=== PATIENT | female | born 1985 | race Hispanic/Latino ===

== ENCOUNTER 2020-04-21 10:04 | Outpatient (CLI) | payer BC, SELFPAY ==
--- NOTE | ~2020-04-21 | XR_ITS ---
XR shoulder RT min 2V 04/21/2020 10:28 INDICATION: Right shoulder pain PROCEDURE: 4 views right shoulder COMPARISON: No prior studies for comparison. FINDINGS: Fracture, dislocation or subluxation is not identified. The soft tissues appear within norm al limits. No foreign bodies are identified. IMPRESSION: 1: NO ACUTE BONE OR JOINT ABNORMALITY IDENTIFIED. Reviewed, dictated and finalized at location A.
--- NOTE | ~2020-04-21 | XR_ITS ---
EXAMINATION: XR_[id number]_CR DATE: 04/21/2020 10:28 INDICATION: Neck pain. TECHNIQUE: 3 views of cervical spine were obtained. COMPARISON: None. FINDINGS: There is mild kyphosis of cervical spine. There is 8 degrees levocurvature of cervicothorac ic spine. Vertebral body heights and intervertebral disc heights are normal. The uncovertebral joints and facet joints are normal. IMPRESSION: 1. Cervical kyphosis and cervicothoracic levocurvature. Reviewed, dictated and finalized at location A.
== END 2020-04-21 10:05 | disposition home or self-care (01) ==
PROVIDERS: PCP Family Medicine; Visit Provider Family Medicine
DX: M25.519 Pain in unspecified shoulder (principal); M54.2 Cervicalgia
CPT/HCPCS: 72040; 73030

== ENCOUNTER 2021-10-06 10:55 | Outpatient (CLI) | payer BC, SELFPAY ==
--- NOTE | ~2021-10-06 | XR_ITS ---
XR knee RT min 4V 10/06/2021 11:23 INDICATION: Right knee pain PROCEDURE: 4 views of the right knee COMPARISON: No prior studies for comparison. FINDINGS: Fracture, dislocation or subluxation is not identified. No significant joint effusion. The soft tissues appear within normal limits. No foreign bodies are identified. IMPRESSION: 1: NO ACUTE BONE OR JOINT ABNORMALITY IDENTIFIED. Reviewed, dictated and finalized at location A. 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
== END 2021-10-06 10:56 | disposition home or self-care (01) ==
PROVIDERS: PCP Family Medicine; Visit Provider Physician Assistant
DX: M25.561 Pain in right knee (principal)
CPT/HCPCS: 73564

== ENCOUNTER 2024-10-15 15:41 | Emergency (ER) | payer OTHER, SELFPAY ==
--- NOTE | 2024-10-15 15:47 | ED_ITS ---
HPI - URI/Sore Throat General Chief Complaint: Upper Respiratory Infection Stated Complaint: COUGH Time Seen by Provider: 10/15/24 15:55 Source: patient Mode of arrival: ambulatory Limitations: no limitations History of Present Illness HPI Narrative: Patient is a 3-year-old female presents with 2 weeks of cough. Patient states she had a fever in the beginning but all other symptoms have resolved. Reports she frequently has coughing fits. Patient is use Delsym and Robitussin along with cough drops. Related Data Home Medications Medication Instructions Recorded Confirmed calcium 600 mg (as cap PO 10/06/21 03/26/24 carbonate)-vitamin D3 10 mcg (400 unit) capsule Allergies Allergy/AdvReac Type Severity Reaction Status Date / Time Sulfa (Sulfonamide Allergy Unknown Rash Verified 10/15/24 15:57 Antibiotics) Review of Systems Review of Systems: All systems reviewed & are unremarkable except as noted in HPI and below Constitutional: Constitutional: Denies body ache(s), Denies chills, Denies fatigue, Denies fever(s), Denies headache(s), Denies malaise and Denies weakness Eyes: Eyes: Denies blurry vision, Denies itchy eyes and Denies loss of vision ENT: Denies otalgia, Denies headache(s), Denies nasal congestion, Denies sinus pain and Denies sore throat Cardiovascular: Cardiovascular: Denies chest pain, Denies irregular heart rhythm and Denies dyspnea Respiratory: Respiratory: Reports cough and Denies dyspnea Gastrointestinal: Gastrointestinal: Denies abdominal pain, Denies diarrhea, Denies nausea and Denies vomiting Musculoskeletal: Musculoskeletal: Denies back pain, Denies myalgias and Denies arthralgias Integumentary/Breasts: Skin/Breast: Denies pruritus and Denies rash Neurologic: Denies headache(s), Denies loss of vision and Denies weakness Psychiatric: Psychiatric: Reports no additional psychiatric complaints Endocrine: Endocrine: Denies fatigue Allergic/Immunologic: Allergic/Immunologic: Denies itchy eyes PMFSH Past Medical History Medical History Hypothyroidism Family History Family History Father Family history of hypercholesterolemia Hypertension Grandparent Family history of cardiovascular disease Social History Social History Smoking status: Never smoker Second hand tobacco smoke exposure: No Alcohol intake: never Substance use: never Substance use type: does not use Comments At time of signature, agree with nursing past medical, surgical, social and family history. There is no relevant family history pertinent to the presenting complaint. Exam Const: General: cooperative, healthy appearing, comfortable, no acute distress and well nourished Nutritional Appearance: well nourished Orientation/consciousness: patient oriented x3 Limitations: no limitations HENMT: Head: normal to inspection, normocephalic and atraumatic Ears: hearing grossly normal bilaterally, external ears normal, TM's normal bilaterally, EAC's normal and no periauricular adenopathy Face/Nose/Sinus: Normal external nose present, Normal nasal mucous membranes and turbinates present, normal facial exam, sinuses nontender and face symmetric Face and sinus: normal facial exam, sinuses nontender and face symmetric Mouth: Yes Normal oral and palatal mucosa present, Yes lip normal, Yes tongue normal, Yes Normal salivary glands and ducts present, Yes oropharynx normal and Yes moist mucous membranes Teeth and gingiva: dentition normal Throat: posterior oropharynx normal, tonsils normal and uvula midline Eyes: General: appearance normal, both eyes and all related structures Alignment and Position: alignment normal and position normal Periorbital: periorbital findings normal Eyelids: eyelids normal Pupils: Equal, round and reactive pupils present Neck: Neck: normal visual inspection, full ROM, no lymphadenopathy and supple Chest: Chest palpation & inspection: normal inspection of the chest and normal palpation of entire chest wall Resp: Effort & Inspection: normal respiratory effort, able to speak in complete sentences and Actively coughing actively coughing Auscultation: clear to auscultation bilaterally, no crackles, no rales, no rhonchi and no wheezes Cardio: Rate: regular rate Rhythm: regular rhythm Heart sounds: S1 normal heart sound present and S2 normal heart sound present GI: Inspection: normal to inspection Skin: General skin exam: normal color and no rashes or lesions noted Neuro: General: patient oriented x3 and moves all extremities Cranial nerves: Yes Equal, round and reactive pupils present Speech: normal speech Gait exam (Neuro): Normal gait present Extrem: General: normal to inspection, full ROM and no edema Psych: Appearance: grossly normal and well kempt Mental Status: mental status grossly normal Speech and movement: Normal speech and movement present Affect: normal affect Attitude: cooperative Thought process: Normal thought process present Course Course Emergency Course: Patient is aware of diagnosis, understands and agrees to treatment plan. Anticipatory guidance given. Patient agrees to follow-up as directed and is aware of reasons to seek care at the emergency department. Portions of this record may have been created with voice recognition software Level of Care: Express Care Visit Vital Signs Vital signs: Reviewed MDM - URI/Sore Throat MDM Narrative Medical decision making narrative: Discharge instructions reviewed with patient, as well as provided in writing per nursing staff. The instructions also include specific and strict return/GO TO THE ER as well as f/u information. All questions have been answered, and the patient deny any further questions with discharge and discharge plan. Differential diagnosis considered: Ambrosio virus, strep pharyngitis, allergic rhinitis, upper respiratory tract infection, sinusitis, rhinosinusitis, nasopharyngitis. viral pharyngitis, otitis media, otitis externa, otitis effusion, foreign body, cerumen impaction, viral syndrome, and influenza.? Exam findings show no acute concerns or changes; patient is non-toxic appearing and is in no distress.? Patient is appropriate for outpatient treatment and follow- up.? Medical Records Attestation: I reviewed the patient's medical records. Discharge Plan Discharge Clinical Impression: Acute purulent bronchitis Patient Disposition: Home, Self-Care Condition: Stable Instructions: Acute Bronchitis (ED) Additional Instructions: Take antibiotic as prescribed. Take steroids in the morning with food. Use Tessalon Perles as needed for cough. Use inhaler with spacer as needed. Other symptomatic treatments include: -Alternate Tylenol and Motrin per package directions for fever or pain. -Antihistamine medication such as Benadryl at night and Zyrtec/Claritin/Linda during the day can help improve symptoms. -Use Flonase twice a day for 5 days then daily to help reduce the inflammation and dry up your sinuses. -You can also use Sudafed or Mucinex. Be sure to drink plenty of water with these medications at least 8 ounces with every dose and it is important to drink 8 to 10 glasses of water per day. Water is a natural decongestant -Eat and drink things that are easy to swallow, like tea or soup, or popsicles. -Oral rinses such as: Salt water gargles and/or may use topical anesthetic (eg. Chloraseptic spray) or lozenges to relieve dryness or throat pain). -Frequent hand washing or hand [employer] home [employer] utility worker is one of the best ways to prevent spread of infection. -Using a vaporizer or humidifier at night will also help thin secretions and help with coughing up phlegm. -Follow up with primary care provider in 3-5 days if condition is not improving - For new or worsening symptoms go directly to the nearest ER Prescriptions: New azithromycin 250 mg tablet See Rx Instructions .ROUTE .COMPLEX Qty: 6 0RF Rx Instructions: For 250 mg dose pack: take 500 mg today (day 1), then 250 mg for 4 days (days 2-5) prednisone 20 mg tablet 40 mg PO DAILY 5 Days Qty: 10 0RF benzonatate 100 mg capsule 100 mg PO BID PRN (Reason: cough) Qty: 14 0RF albuterol sulfate 90 mcg/actuation HFA aerosol inhaler 2 puff inhalation QID PRN (Reason: shortness of breath or wheezing) Qty: 6.7 0RF (DME) Aerochamber MV Spacer See Rx Instructions .Route Qty: 1 0RF Rx Instructions: As directed No Action buspirone 5 mg tablet 5 mg PO TID Qty: 90 0RF calcium carbonate-vitamin D3 600 mg(1,500mg) -400 unit capsule PO omeprazole 20 mg capsule,delayed release(DR/EC) 20 mg PO BID Qty: 60 0RF levothyroxine 75 mcg tablet 75 mcg PO DAILY Qty: 30 3RF multivitamin Tablet 1 tablet PO DAILY Qty: 100 3RF Follow-up/Referrals: Rosalinda Orozco MD [Primary Care Provider] - 3 Days Time of Disposition: 16:05
[2024-10-15 15:49] VITALS: BP 120/88; PULSE 74; RESP 16; TEMP 36.3; O2SAT 100
== END 2024-10-15 16:08 | disposition home or self-care (01) ==
PROVIDERS: Emergency Provider Nurse Practitioner Family; PCP Family Medicine
DX: J20.9 Acute bronchitis, unspecified (principal); E03.9 Hypothyroidism, unspecified
CPT/HCPCS: 99213; G0463

== ENCOUNTER 2025-01-08 19:26 | Emergency (ER) | payer OTHER, SELFPAY ==
--- NOTE | 2025-01-08 19:30 | ED.WOUNDLAC ---
HPI - Wound/Laceration General Chief Complaint: Wound/Laceration Stated Complaint: HEAD INJURY/SCALP LACERATION Time Seen by Provider: 01/08/25 19:30 Source: patient Mode of arrival: ambulatory Limitations: no limitations History of Present Illness HPI narrative: 39-year-old female presents with complaint of laceration to top of scalp. Patient states she hit her head on a shelf at [employer]. Injury happened approximately 2 hours prior to arrival. Continues to have small amount of bleeding. No LOC. Denies dizziness, headache, nausea, vomiting. Ambulatory with steady gait. All systems reviewed and negative except as noted above. Related Data Home Medications ?Medication ?Instructions ?Recorded ?Confirmed ?Last Taken ?Type calcium 600 mg (as cap PO 10/06/21 03/26/24 Unknown History carbonate)-vitamin D3 10 mcg (400 unit) capsule Allergies Allergy/AdvReac Type Severity Reaction Status Date / Time Sulfa (Sulfonamide Allergy Unknown Rash Verified 01/08/25 19:36 Antibiotics) Review of Systems Review of Systems: CONSTITUTIONAL: Denies fever, chills, or sweats. EYES: Denies visual changes, redness, or discharge. ENT: Denies rhinorrhea, congestion, sore throat, or otalgia. CARDIOVASCULAR: Denies chest pain, palpitations, or edema. RESPIRATORY: Denies cough or dyspnea. GASTROINTESTINAL: Denies abdominal pain, nausea, vomiting, or diarrhea. GENITOURINARY: Denies dysuria or hematuria. SKIN: Denies rash or itching. Reports laceration to scalp MUSCULOSKELETAL: Denies back pain, joint pain, or myalgia. NEUROLOGIC: Denies headache, numbness, or weakness. PSYCHIATRIC: Denies anxiety or depression. All other systems reviewed are negative, except as documented in HPI. [facility] Past Medical History Medical History (Updated 01/09/25 @ 00:01 by Malu Calvillo) Hypothyroidism Family History Family History Father Family history of hypercholesterolemia Hypertension Grandparent Family history of cardiovascular disease Social History Social History Smoking status: Never smoker Second hand tobacco smoke exposure: No Alcohol intake: never Substance use: never Substance use type: does not use Comments At time of signature, agree with nursing past medical, surgical, social and family history. There is no relevant family history pertinent to the presenting complaint. Exam Narrative: GENERAL: This is a well-nourished, well-developed patient, in no apparent distress. HEAD: normocephalic, atraumatic. EYES: PERRL. Sclera clear/white. Vision is grossly intact. EARS: External ears normal NOSE: External nose normal NECK: Neck supple, non-tender without lymphadenopathy, masses or thyromegaly. CARDIOVASCULAR: Regular rate and rhythm without murmurs, gallops, or rubs. RESPIRATORY: Clear to auscultation. Breath sounds equal bilaterally. No wheezes, rales, or rhonchi. SKIN: warm, Dry, with no suspicious lesions or rash, good texture and turgor. laceration to scalp approx. 0.5cm, small amount of bleeding. NEURO: awake, alert, and oriented to person, place and time. There were no obvious focal neurologic abnormalities. EXTREMITIES: No joint tenderness, effusion, or edema noted. Course Course Level of Care: Express Care Visit Vital Signs Vital signs: Vital Signs Temperature 37.1 C 01/08/25 19:45 Pulse Rate 74 01/08/25 19:45 Respiratory Rate 16 01/08/25 19:45 Blood Pressure 123/76 01/08/25 19:45 Pulse Oximetry 100 01/08/25 19:45 Temperature 36.6 C 01/08/25 19:53 Pulse Rate 101 H 01/08/25 19:53 Respiratory Rate 16 01/08/25 19:53 Blood Pressure 121/87 01/08/25 19:53 Pulse Oximetry 100 01/08/25 19:53 Reviewed Procedures Laceration Laceration 1: Date: 01/08/25 Site: scalp Size (cm): 0.5 Description: linear ====== Skin Level ====== Skin layer closed with: amanda Number of sutures: 2 ====== Subcutaneous Layer ====== ====== Muscle Layer ====== ====== Tendon Layer ====== MDM - Wound/Laceration MDM Narrative Medical decision making narrative: 2 amanda placed 2 scalp laceration. Patient tolerated well. Patient alert, nontoxic. No neuro deficits. Please be advised this is a medical document. It is intended for [id number] communication. It is written in medical language and may contain unfamiliar abbreviations or verbiage. Medical documents are intended to carry relevant information, facts as evident, and the clinical opinion of the practitioner at the time of the encounter. This report may have been done utilizing a voice recognition system. Attempts have been made to correct errors. However, there may be uncorrected grammatical, spelling, and recognition errors present. The file time of this note does not necessarily represent the time of service. Discharge Plan Discharge Clinical Impression: Laceration of scalp Patient Disposition: Home, Self-Care Condition: Stable Instructions: Laceration (ED), Staple Care (ED) Additional Instructions: 2 amanda were placed to laceration on your scalp. Follow-up to have amanda removed in 5-7 days. Keep clean and dry. May apply Vaseline or Aquaphor to reduce scarring. Do not pull or pick or scrub at amanda when washing hair. Patient Language: Slovak Prescriptions: No Action azithromycin 250 mg tablet See Rx Instructions .ROUTE .COMPLEX Qty: 6 0RF Rx Instructions: For 250 mg dose pack: take 500 mg today (day 1), then 250 mg for 4 days (days 2-5) prednisone 20 mg tablet 40 mg PO DAILY 5 Days Qty: 10 0RF benzonatate 100 mg capsule 100 mg PO BID PRN (Reason: cough) Qty: 14 0RF albuterol sulfate 90 mcg/actuation HFA aerosol inhaler 2 puff inhalation QID PRN (Reason: shortness of breath or wheezing) Qty: 6.7 0RF (DME) Aerochamber MV Spacer See Rx Instructions .Route Qty: 1 0RF Rx Instructions: As directed buspirone 5 mg tablet 5 mg PO TID Qty: 90 0RF calcium carbonate-vitamin D3 600 mg(1,500mg) -400 unit capsule PO omeprazole 20 mg capsule,delayed release(DR/EC) 20 mg PO BID Qty: 60 0RF multivitamin Tablet 1 tablet PO DAILY Qty: 100 3RF levothyroxine 75 mcg tablet 75 mcg PO DAILY Qty: 30 3RF Follow-up/Referrals: Rosalinda Orozco MD [Primary Care Provider] - Stand Alone Forms: Work/School Release IP Time of Disposition: 19:43
[2025-01-08 19:45] VITALS: BP 123/76; PULSE 74; RESP 16; TEMP 37.1; O2SAT 100
--- NOTE | 2025-01-08 19:49 | PC.NURSE ---
0 Patient awake and alert, pupils equal and reactive to light; handgrips strong push and pull, feet strong push, able to touch nose with outstretched arms; tongue midline. No loc reported.
[2025-01-08 19:53] VITALS: BP 121/87; PULSE 101; RESP 16; TEMP 36.6; O2SAT 100
== END 2025-01-08 19:54 | disposition home or self-care (01) ==
PROVIDERS: Emergency Provider Nurse Practitioner Family; PCP Family Medicine
DX: S01.01XA Laceration without foreign body of scalp, initial encounter (principal); W22.8XXA Striking against or struck by other objects, initial encounter; E03.9 Hypothyroidism, unspecified
CPT/HCPCS: 12001; 99212; G0463

== ENCOUNTER 2025-01-16 16:13 | Emergency (ER) | payer SELFPAY ==
[2025-01-16 16:28] VITALS: BP 115/79; PULSE 72; RESP 16; TEMP 36.2; O2SAT 100
--- NOTE | 2025-01-16 17:44 | ED.GENADULT ---
HPI - General Adult General Chief complaint: Skin/Abscess/Foreign Body Stated complaint: [place] Removal Source: patient Mode of arrival: ambulatory Limitations: no limitations History of Present Illness HPI narrative: Patient presents to have amanda removed from her scalp. She was evaluated here on 01/08/25 after she had her head on a shelf at [employer]. She had 2 amanda placed. She tolerated well. She denies any fever, chills, purulence from the affected area. She has no physical concerns whatsoever. Related Data Home Medications ?Medication ?Instructions ?Recorded ?Confirmed ?Last Taken ?Type calcium 600 mg (as cap PO 10/06/21 03/26/24 Unknown History carbonate)-vitamin D3 10 mcg (400 unit) capsule Allergies Allergy/AdvReac Type Severity Reaction Status Date / Time Sulfa (Sulfonamide Allergy Unknown Rash Verified 01/16/25 16:38 Antibiotics) Review of Systems Review of Systems: CONSTITUTIONAL: Denies fever, chills, or sweats. EYES: Denies visual changes, redness, or discharge. ENT: Denies rhinorrhea, congestion, sore throat, or otalgia. CARDIOVASCULAR: Denies chest pain, palpitations, or edema. RESPIRATORY: Denies cough or dyspnea. GASTROINTESTINAL: Denies abdominal pain, nausea, vomiting, or diarrhea. GENITOURINARY: Denies dysuria or hematuria. SKIN: reports healing laceration to the scalp MUSCULOSKELETAL: Denies back pain, joint pain, or myalgia. NEUROLOGIC: Denies headache, numbness, dizziness, or weakness. PSYCHIATRIC: Denies anxiety or depression. [facility] Past Medical History Medical History Hypothyroidism Surgical History Surgical History No pertinent past surgical history Family History Family History Father Family history of hypercholesterolemia Hypertension Grandparent Family history of cardiovascular disease Social History Social History Smoking status: Never smoker Second hand tobacco smoke exposure: No Alcohol intake: never Substance use: never Substance use type: does not use Exam Narrative: GENERAL: Well-appearing, well-nourished, and in no acute distress. HEAD: Normocephalic EYES: PERRLA and EOMI. ENT: Nares clear, no rhinorrhea or epistaxis. Mucous membranes moist. Oropharynx without tonsillar hypertrophy exudate or other lesions. Bilateral TMs pearly nielsen nonbulging NECK: Supple. No adenopathy or masses. No carotid bruits or JVD CHEST: Clear to auscultation. No respiratory distress. No wheezes rales or rhonchi HEART: Regular rate and rhythm. No murmur heard. Normal peripheral pulses. ABDOMEN: Soft, nontender, nondistended, normal active bowel sounds. EXTREMITIES: Normal range of motion. No edema. SKIN: Approximately 5 mm linear laceration to frontal region of the scalp with two amanda in place. There is a scant amount of dried serosanguinous drainage present. Warm, dry, no rash. NEURO: No focal deficits. Alert and oriented x3. PSYCH: Normal mood and affect. Course Course Level of Care: Express Care Visit Vital Signs Vital signs: Vital Signs Temperature 36.2 C L 01/16/25 16:28 Pulse Rate 72 01/16/25 16:28 Respiratory Rate 16 01/16/25 16:28 Blood Pressure 115/79 01/16/25 16:28 Pulse Oximetry 100 01/16/25 16:28 Temperature 36.2 C L 01/16/25 16:28 Pulse Rate 72 01/16/25 16:28 Respiratory Rate 16 01/16/25 16:28 Blood Pressure 115/79 01/16/25 16:28 Pulse Oximetry 100 01/16/25 16:28 Procedures Other Procedure Procedure 1: Other Procedure: after obtaining informed consent, 2 amanda were removed with staple removal. Patient tolerated well without complication. Medical Decision Making Vital Signs Vital Signs: Vital Signs Temperature 36.2 C L 01/16/25 16:28 Pulse Rate 72 01/16/25 16:28 Respiratory Rate 16 01/16/25 16:28 Blood Pressure 115/79 01/16/25 16:28 Pulse Oximetry 100 01/16/25 16:28 Temperature 36.2 C L 01/16/25 16:28 Pulse Rate 72 01/16/25 16:28 Respiratory Rate 16 01/16/25 16:28 Blood Pressure 115/79 01/16/25 16:28 Pulse Oximetry 100 01/16/25 16:28 Discharge Plan Discharge Clinical Impression: Encounter for removal of amanda Patient Disposition: Home, Self-Care Condition: Stable Instructions: Antibiotic Form, Staple Care (ED) Patient Language: [place] Prescriptions: No Action (DME) Aerochamber MV Spacer See Rx Instructions .Route Qty: 1 0RF Rx Instructions: As directed buspirone 5 mg tablet 5 mg PO TID Qty: 90 0RF calcium carbonate-vitamin D3 600 mg(1,500mg) -400 unit capsule PO multivitamin Tablet 1 tablet PO DAILY Qty: 100 3RF levothyroxine 75 mcg tablet 75 mcg PO DAILY Qty: 30 3RF Follow-up/Referrals: Rosalinda Orozco MD [Primary Care Provider] - Time of Disposition: 17:44
== END 2025-01-16 17:45 | disposition home or self-care (01) ==
PROVIDERS: Emergency Provider Nurse Practitioner; PCP Family Medicine
DX: Z48.02 Encounter for removal of sutures (principal); E03.9 Hypothyroidism, unspecified
CPT/HCPCS: 99211; G0463

== ENCOUNTER 2025-04-22 10:32 | Outpatient (CLI) | payer OTHER, SELFPAY ==
--- NOTE | ~2025-04-22 | MM_ITS ---
EXAMINATION: MM screening [facility] BI w [facility] HISTORY: Screening TECHNIQUE: Craniocaudal and mediolateral oblique 3-D tomosynthesis images were obtained and synthetic 2-D images were generated. CAD analysis was submitted and interpreted. COMPARISON: No prior mammogram is available for comparison at this institution. BREAST PARENCHYMAL COMPOSITION: Dense: The breasts are heterogeneously dense, which may obscure small masses FINDINGS: There is no evidence of suspicious mass, calcification, or architectural distortion to sugg est malignancy in either breast. There has been no suspicious interval change. IMPRESSION: 1. No mammographic evidence of malignancy. 2. Recommend routine screening mammography in one year. BI-RADS Category 1: Negative Reviewed, dictated and finalized at location A.
== END 2025-04-22 10:33 | disposition home or self-care (01) ==
LOC: MICIMG 10:33
PROVIDERS: PCP Family Medicine; Visit Provider Family Medicine
DX: Z12.31 Encounter for screening mammogram for malignant neoplasm of breast (principal)
CPT/HCPCS: 77063; 77067